=== PATIENT | female | born 1985 | race Caucasian/White ===

== ENCOUNTER 2018-02-13 18:40 | Emergency (ER) | payer BC, SELFPAY ==
[2018-02-13 18:52] VITALS: BP 117/72; PULSE 66; RESP 20; TEMP 36.8; O2SAT 100
--- NOTE | 2018-02-13 19:18 | DI.RAD.S_ITS ---
PROCEDURE: XR SOFT TISSUE NECK INDICATIONS: mid neck swelling sensation and subjective difficulty breathing TECHNIQUE: 2 views of the neck were acquired. COMPARISON: None. FINDINGS: Airway: The airway appears patent. Soft tissues: Prevertebral soft tissues are normal in thickness. The epiglottis and aryepiglottic folds appear normal. No soft tissue gas. Bones: No suspicious bony lesions. Visualized cervical spine demonstrates slight reversal of the cervical lordosis centered at C4-C5. No definite fracture or subluxation. IMPRESSION: 1. No radiographic evidence of abnormal airway narrowing. Dictated by: Luca De Leon M.D. on 02/13/2018 at 19:38 Approved by: Luca De Leon M.D. on 02/13/2018 at 19:39
--- NOTE | 2018-02-13 20:45 | ED.URI ---
HPI - URI/Sore Throat General Chief Complaint: Upper Respiratory Symptoms Stated Complaint: TROUBLE BREATHING, says its her throat Time Seen by Provider: 02/13/18 18:45 History of Present Illness HPI Narrative: HPI 32-year-old female with no significant past medical history presents for evaluation of one day of mid anterior neck tightness feeling notable on swallowing and on inspiration/expiration. Patient denies fevers, neck stiffness, headache, changes in vision or hearing, notes mild difficult swallowing. Notes that she has had mild URI to symptoms or last 3 days. Notes that she has had 2 episodes of waking up or last month where she feels like she has had difficulty breathing and choking in her mid lower throat. Patient reports that she was seen an outside facility presently 3 days ago, she had a negative rapid strep salon, but because her throat reportedly looks like it could be a bacterial pharngitis she was given amoxicillin and steroids. Patient said no significant improvement with these interventions. M/S/F/SocHx notable for: please see HPI; remainder reviewed with patient and in chart. ROS: Negative constitutional, eye, cardiovascular, pulmonary, GI, , MSK, skin, neurologic, psychiatric, endocrine unless noted in the HPI. Exam Gen: Pleasant, non-toxic appearing, resting comfortably. HEENT: Normocephalic, atraumatic. * Ears - TMs clear bilaterally, bilateral external auditory canals without erythema, inflammation, or swelling, bilateral mastoids nontender without overlying erythema, swelling, or warmth. * Eyes - Bilateral eyes without injection, swelling, or discharge, no proptosis or periorbital erythema, swelling, warmth, or tenderness. * Mouth - Anterior oropharynx with MMM, no lesions appreciated, floor of the mouth is soft and without swelling. Posterior oropharynx without swelling, exudate, erythema, lesions, or post-nasal drip, uvula midline. * Nose - Nares without crusting or discharge. * Neck - Neck supple without posterior anterior cervical chain lymphadenopathy bilaterally. Patient able to phonate a high-pitched E without difficulty. Patient able to comfortably drink a glass of water. Resp: Clear to auscultation bilaterally, normal work of breathing without accessory muscle usage. Card: Regular rate and rhythm with no murmurs, rubs or gallops. Extremities warm and well perfused. GI: Non-tender to palpation throughout all quadrants, no masses or organomegaly appreciated. : Deferred MSK: No visible deformities, strength and tone without visually appreciable deficit. Neuro: AO x 3, no facial asymmetry, vision and hearing WNL. Heme/Lymph: Deferred Skin: Normal color with no visible lesions (other than noted above). Psych: Mood and affect appropriate. XR Soft Tissue Neck: no radiographic evidence of abnormal airway narrowing. MDM Previous chart, nursing note, labs, imaging, and vitals reviewed. A: 32-year-old female with no significant past medical history presents for evaluation of one day of mid anterior neck tightness feeling notable on swallowing and on inspiration/expiration. DDx: pharngitis, esophagitis, RPA, TOBACCO BUYER, epiglottitis, globus hystericus, vocal cord dysfunction, tracheitis, hypnagogic hallucinations, hypnopompic hallucinations. Evaluation: patient remarkably well-appearing without evidence of clinically significant pharngitis or TOBACCO BUYER, given her lack of discomfort on swallowing or identifiable risk factors doubt esophagitis. Low suspicion of epiglottitis/RPA/tracheitis based on history and exam, soft tissue neck films without evidence of abnormalities - as such, doubt these processes. Remaining on the differential is mild inflammation, global hystericus, vocal cord dysfunction, and with respect to the sleep-related sensations possibility of a hypnagogic or a hypnopompic hallucination. Patient instructed to use NSAIDs and follow up with their PCP in 1-2 days for repeat evaluation and further care. Impression: sore throat (please reference below for remainder of encounter information) Related Data Allergies Allergy/AdvReac Type Severity Reaction Status Date / Time ibuprofen [IBUPROFEN] AdvReac Intermediate SWELLING Verified 02/13/18 19:17 WITH HIGH DOSES [facility] Medical History Anxiety (Acute) Social History Smoking Status: Never smoker Exam Initial Vital Signs Initial Vital Signs: Vital Signs Temperature 98.3 F 05/20/18 18:52 Pulse Rate 66 02/13/18 18:52 Respiratory Rate 20 02/13/18 18:52 Blood Pressure 117/72 02/13/18 18:52 Pulse Oximetry 100 02/13/18 18:52 Course Orders Ordered: ED Orders 02/13/18 19:18 XR soft tissue neck Stat Vital Signs - 8 hr 02/13/18 18:52 Temperature 98.3 F Pulse Rate 66 Respiratory Rate 20 Blood Pressure 117/72 Pulse Oximetry 100
[2018-02-13 21:06] VITALS: BP 115/70; PULSE 67; RESP 18; TEMP 36.9; O2SAT 99
== END 2018-02-13 21:05 | disposition home or self-care (01) ==
PROVIDERS: Emergency Provider Emergency Medicine; Family Provider Family Medicine; PCP Family Medicine
DX: J02.9 Acute pharyngitis, unspecified (principal)
CPT/HCPCS: 70360; 99282; 99283

== ENCOUNTER → 2018-03-29 13:36 | Outpatient (CLI) | payer BC, SELFPAY ==
--- NOTE | 2018-03-29 13:41 | DI.US.S_ITS ---
ULTRASOUND OF LEFT BREAST: 03/29/2018 CLINICAL: Palpable left breast lump. [facility] the left breast was performed. Chau scale images of the real-time examination were reviewed. There is a 2.1 cm x 1.4 cm x 1.9 cm oval mass with a lobulated margin in the left breast at 10 o'clock middle depth 8 cm from the nipple. This oval mass is hypoechoic. This correlates as palpated and with mammography findings. Color flow imaging demonstrates that there is an adjacent vascularity. IMPRESSION: SUSPICIOUS OF MALIGNANCY - FOLLOW-UP RECOMMENDED The 2.1 cm x 1.4 cm x 1.9 cm oval mass in the left breast is suspicious of malignancy. An ultrasound guided biopsy is recommended. Findings discussed with the patient by Dr. Aguilar of the department of radiology at the time of evaluation. This exam was interpreted at Station ID: [id number]. Electronically Signed By: Enrique Marquez M.D. cj/:03/29/2018 15:59:48 copy to: Mary Serra, fax: [phone] letter sent: Biopsy Required Ultrasound BI-RADS: 4 Suspicious abnormality
--- NOTE | 2018-03-29 13:41 | DI.MG.S_ITS ---
BILATERAL DIGITAL DIAGNOSTIC MAMMOGRAM 3D/2D: 03/29/2018 CLINICAL: Baseline exam. Family history of breast cancer. Left breast lump. No prior exams were available for comparison. The tissue of both breasts is extremely dense, which lowers the sensitivity of mammography. There is a 2 cm round equal density mass with a macrolobulated margin in the left breast at 10 o'clock middle depth. This correlates as palpated. No other significant masses, calcifications, or other findings are seen in either breast. IMPRESSION: INCOMPLETE: NEEDS ADDITIONAL IMAGING EVALUATION The 2 cm round equal density mass in the left breast is indeterminate. An ultrasound is recommended. This exam was interpreted at Station ID: [id number]. NOTE: For mammograms, a report in lay terms will be sent to the patient. Approximately 15% of breast malignancies will not be visualized mammographically. In the management of a palpable breast mass, a negative mammogram must not discourage biopsy of a clinically suspicious lesion. Electronically Signed By: Enrique oliveira/carin:03/29/2018 15:58:11 copy to: Mary Mccauley, Mary Mccauley, fax: [phone] ACR BI-RADS Category 0: Incomplete [id number]
== END ==
PROVIDERS: Family Provider Family Medicine; PCP Family Medicine; Visit Provider Obstetrics & Gynecology
DX: R92.8 Other abnormal and inconclusive findings on diagnostic imaging of breast (principal); Z80.3 Family history of malignant neoplasm of breast; N63.20 Unspecified lump in the left breast, unspecified quadrant
CPT/HCPCS: 76642; 77066; G0279

== ENCOUNTER → 2018-04-18 08:57 | Outpatient (CLI) | payer BC, SELFPAY ==
--- NOTE | 2018-04-18 | DI.MG.S_ITS ---
UNILATERAL LEFT DIGITAL DIAGNOSTIC MAMMOGRAM: 04/18/2018 CLINICAL: Left breast mass. Post clip placement. No prior exams were available for comparison. The tissue of the left breast is extremely dense, which lowers the sensitivity of mammography. There is a marker clip in the appropriate position in the left breast at 11 o'clock posterior depth. This marker clip placement is at biopsy site. IMPRESSION: POST PROCEDURE MAMMOGRAM FOR MARKER PLACEMENT There was a successful marker clip placement in the left breast posterior depth. This exam was interpreted at Station ID: [id number]. NOTE: For mammograms, a report in lay terms will be sent to the patient. Approximately 15% of breast malignancies will not be visualized mammographically. In the management of a palpable breast mass, a negative mammogram must not discourage biopsy of a clinically suspicious lesion. Electronically Signed By: Zak phillips/:04/18/2018 10:48:38 copy to: Mary Mccauley, Mary Mccauley, fax: [phone] ACR BI-RADS Category Post-procedure mammogram for marker placement
--- NOTE | 2018-04-18 01:04 | PATH_ITS ---
[id number] Control ID: [id number] [facility] PATHOLOGY ONLY [address] [facility] [address] Patient Details LIZZY JOHNSON : 1985 Age(y/m/d): Gender: F SSN: Additional Information: Clinical Info: [id number] UPIN: [id number] Specimen Details Date collected: 04/18/2018 010 Local Date received: 04/19/2018 Date entered: 04/19/2018 Date reported: 04/20/2018 1905 ET Physician Details Ordering: Shanta BLOOM Referring: ID: Tests Ordered: Pathology Report Clinician Provided ICD Code(s) & Clinical History: Material Submitted: (01) BREAST MASS 10 O'CLOCK 8 CM FROM NIPPLE Diagnosis: (02) Core Biopsies, Left Breast Mass, 10 O'Clock, 8 CM From Nipple: Fibroadenoma. Adenosis in the surrounding mammary tissue. No evidence of malignancy or cytologic atypia. BFI/04/19/2018 Pathologist Provided ICD Code(s): (02) D24.2 CPT Codes: (02) 077752 Gross Description: (01) Received one formalin-filled container labeled with the patient's name and designated LT breast mass 10 o'clock 8 cm from nipple. The specimen is received with a plastic filter, sample loose in container and consists of four 0.2-0.3 cm in diameter, light yellow-garza, rough, cylindrical-shaped portions of tissue which range in length from 1.0 cm to 2.0 cm. The specimen is entirely submitted in one cassette. Collection date: 04/18/2018. Collection time in fixative: 10:15 AM. Total fixation time: 12 hours, up to 24. ([id number])/FRR This is an amended report due to a clerical error. There is no change in the diagnosis. This case is amended in order for the report to cross the electronic results interface. The final diagnosis is unchanged. This case was originally reviewed and signed out by Dr. Clinton Smith on 04/19/2018. Electronically signed by () Bee Martines MD, Pathologist NP- [id number]
--- NOTE | 2018-04-18 08:59 | DI.US.S_ITS ---
ULTRASOUND GUIDED BIOPSY LEFT BREAST USING VACUUM DEVICE WITH MARKING DEVICE INSERTED AND POST DIGITAL MAMMOGRAPHIC AND ULTRASOUND IMAGIN04/18/2018 CLINICAL: Left breast mass. PATIENT CONSENT: Risks (minor bleeding, infection, vasovagal reaction and repeat procedure), benefits and alternatives were explained to the patient and written informed consent was obtained. Correlation is made to exams dated: 03/29/2018 ultrasound and 03/29/2018 mammogram [facility]. An ultrasound guided biopsy using real-time ultrasound was performed for the 2 cm lobulated solid mass located in the left breast at 10 o'clock middle depth. The skin was prepped in the usual manner. Local anesthetic was administered to the access site. A skin radha was made in the breast. The abnormality was approached from the lateral aspect. A 13 gauge biopsy needle was placed adjacent to the abnormality under ultrasound guidance. Once the needle was documented to be in the correct location, five specimens were obtained using the Mammotome biopsy system. The patient received additional local anesthetic during the procedure. A titanium clip was inserted into the biopsy cavity. Post procedure digital mammographic and ultrasound imaging demonstrates the clip at the targeted area and partial removal of the abnormality. The specimens were sent to the laboratory for pathological analysis. IMPRESSION: ULTRASOUND GUIDED BIOPSY BENIGN Ultrasound guided biopsy of the 2 cm solid mass in the left breast at 10 o'clock middle depth was successful. Pathology indicates benign fibroadenoma (FA). Pathology results are concordant with imaging findings. Return to annual mammogram screening schedule is recommended. This exam was interpreted at Station ID: [id number]. tee Yoo M.D., M.D./carin:04/20/2018 23:08:36 copy to: Mary Serra, fax: [phone]
== END ==
PROVIDERS: Family Provider Family Medicine; PCP Family Medicine; Visit Provider Obstetrics & Gynecology
DX: N63.22 Unspecified lump in the left breast, upper inner quadrant (principal)
CPT/HCPCS: 19083; 77065

== ENCOUNTER 2019-10-20 09:40 | Emergency (ER) | payer OTHER, SELFPAY ==
[2019-10-20 09:51] VITALS: BP 131/82; PULSE 69; RESP 14; TEMP 37.2; O2SAT 98; BMI 30.8
--- NOTE | 2019-10-20 11:10 | PC.NURSE ---
pt states she thought it might be anxiety because she's had that before but now doesn't think so. pt states its difficult to eat and sometimes difficult to swallow her own saliva and she panics when that happens.
--- NOTE | 2019-10-20 11:20 | DI.RAD.S_ITS ---
PROCEDURE: XR SOFT TISSUE NECK INDICATIONS: difficulty swallowing including saliva TECHNIQUE: 2 views of the neck were acquired. COMPARISON: Merged With [facility], CR, XR SOFT TISSUE NECK, 02/13/2018, 18:58. FINDINGS: Airway: The airway appears patent. Soft tissues: Prevertebral soft tissues are normal in thickness. The epiglottis and aryepiglottic folds appear normal. No soft tissue gas. There is reversal of the normal cervical lordosis. Bones: No suspicious bony lesions. Visualized cervical spine is normally aligned. The visualized lung apices are unremarkable. IMPRESSION: No significant soft tissue abnormality is seen. If it would be helpful for clinical management decision making, please consider a dedicated soft tissue neck protocol CT with IV contrast for further evaluation. Dictated by: Jacky Arriaga M.D. on 10/20/2019 at 11:01 Approved by: Jacky Arriaga M.D. on 10/20/2019 at 11:02
--- NOTE | 2019-10-20 11:25 | ED.URI ---
HPI - URI/Sore Throat <KALEE Zambrano - Last Filed: 10/20/19 14:01> General Chief Complaint: Upper Respiratory Symptoms Stated Complaint: Trouble Swollowing, losing weight. Time Seen by Provider: 10/20/19 11:05 Source: patient Mode of arrival: Ambulatory Limitations: no limitations History of Present Illness HPI Narrative: This is a 34-year-old female, nonsmoker, who presents to ED with difficulty swallowing. Patient states it started about 2 months ago intermittently feeling tightness in her throat the last couple of weeks this has been more constant and last 3-4 days she has difficulty swallowing her own secretions. This symptoms causing her to have panic attacks. She recently has started BuSpar for anxiety in addition to clonazepam as needed medications due to her symptoms. Patient reports had not visualized swelling in her tongue or throat. Patient denies short of breath, dyspnea, wheezing, sore throat, recent cold symptoms, increasing size in her throat. Patient denies fever, chills, nausea or vomiting. Patient has history of GERD in the past and used to take PPI for night cough and tightness in her throat. Patient reports last few days has been only drinking liquid as diet and noticed losing weight. Related Data Home Medications Medication Instructions Recorded Confirmed clonazepam 0.5 mg tablet 0.5 mg PO BID PRN 03/22/18 10/20/19 albuterol sulfate 90 mcg/actuation 2 puff INHALATION Q6H PRN 09/16/18 10/20/19 aerosol inhaler buspirone See Rx Instructions .ROUTE .COMPLEX 10/20/19 10/20/19 Previous Rx's Medication Instructions Recorded pantoprazole 20 mg PO DAILY 14 Days #14 tab 10/20/19 Allergies Allergy/AdvReac Type Severity Reaction Status Date / Time ibuprofen [IBUPROFEN] AdvReac Intermediate SWELLING Verified 10/20/19 09:51 WITH HIGH DOSES Review of Systems <KALEE Zambrano - Last Filed: 10/20/19 14:01> Review of Systems Narrative: General: Denies fever, chills, fatigue, malaise, sweats. HEENT: Denies sinus pain, ear pain, sore throat, difficulty swallowing (+), dizziness. Respiratory: Denies dyspnea, cough, wheezing, hemoptysis, sputum. Cardiovascular: Denies chest pain, palpitations, orthopnea, edema. Gastrointestinal: Denies nausea, vomiting, abdominal pain, diarrhea, constipation, melena. : Denies dysuria, frequency, incontinence, hematuria, urinary retention. Musculoskeletal: Denies weakness, joint pain or bony pain. Skin: Denies rash, skin lesions, or other. Neurologic: Denies weakness, headache, numbness, change in speech, confusion, seizures, incoordination. Psychiatric: Reports anxiety and her symptoms causing panic attacks. 12-point review of systems is negative except for those stated above. Patient History <KALEE Zambrano - Last Filed: 10/20/19 14:01> Medical History Anxiety (Acute) Surgical History History of bilateral tubal ligation (Acute) Social History Smoking Status: Never smoker Smoking Status: Never smoker alcohol intake frequency: holidays/special occasions only Substance Use Type: does not use Exam <KALEE Zambrano - Last Filed: 10/20/19 14:01> Narrative Exam Narrative: GEN: Alert, oriented x 3, well appearing and nourished, and in no acute distress. Head: Normal cephalic, atraumatic. No scalp or temporal tenderness, palpable mass or rash. EYES: Pupils are equal, round, and reactive to light and accommodation. Extraocular muscles are intact bilaterally. There is no subconjunctival hemorrhage, exudate and sclera non-icteric. ENT: Bilateral auditory canals and tympanic membranes clear. Hearing grossly intact. Nose without bleeding, purulent discharge or deviation. Facial sinuses nontender to palpate. Mucous membrane moist, no mucosal lesion. Throat without erythema, tonsillar hypertrophy or exudate. Uvula in midline, airway patent. Pt is able to swallow her own secretion w/o difficulty. Neck: Trachea in midline. No JVD, non-tender without lymphadenopathy. No masses or thyroid megaly. Supple, non-tender and no meningeal signs. CARDIAC: Normal regular rate and rhythm without murmurs, gallops, or rubs. No chest wall tenderness. No peripheral edema, cyanosis or pallor. Capillary refill is less than 2 seconds. RESPIRATORY: Lungs are clear to auscultate bilaterally. No cough, wheezes, rales, or rhonchi. No stridor, respiratory distress, increase work of breathing, or accessary muscle used. ABD: Abdomen soft, nontender and non-distended. No guarding or rebound tenderness to palpate. Bowel sounds are normal in all 4 quadrants. There is no palpable masses or organomegaly. EXT: Full painless ROM of all extremities with no loss of sensation, strength, effusion or edema. SKIN: Warm, dry, normal color for patient. No erythema, lesions or rash over visible areas. BACK: Nontender without deformity or crepitance. No flank tenderness. NEUROLOGICAL: Alert and oriented to place, time and person. Sensation and motor function intact bilaterally. No facial droops, dysphasia. PSYCHIATRIC: Good judgement and reason, without hallucinations, abnormal affect or abnormal behaviors during the examination. Patient is not suicidal. Initial Vital Signs Initial Vital Signs: Vital Signs Temperature 98.9 F 10/20/19 09:51 Pulse Rate 69 10/20/19 09:51 Respiratory Rate 14 10/20/19 09:51 Blood Pressure 131/82 10/20/19 09:51 Pulse Oximetry 98 10/20/19 09:51 <Eran Cardona MD - Last Filed: 10/23/19 20:54> Initial Vital Signs Initial Vital Signs: Vital Signs Temperature 98.9 F 10/20/19 09:51 Pulse Rate 69 10/20/19 09:51 Respiratory Rate 14 10/20/19 09:51 Blood Pressure 131/82 10/20/19 09:51 Pulse Oximetry 98 10/20/19 09:51 Course <KALEE Zambrano - Last Filed: 10/20/19 14:01> Orders Ordered: Discontinued Medications Pantoprazole Sodium (Protonix) 20 mg PO NOW ONE Stop: 10/20/19 12:30 Last Admin: 10/20/19 13:20 Dose: 20 mg Documented by: YUNIER Vital Signs Vital signs: Vital Signs - 8 hr 10/20/19 09:51 10/20/19 13:30 Temperature 98.9 F Pulse Rate 69 61 Respiratory Rate 14 18 Blood Pressure 131/82 120/62 Pulse Oximetry 98 98 <Eran Cardona MD - Last Filed: 10/23/19 20:54> Orders Ordered: Discontinued Medications Pantoprazole Sodium (Protonix) 20 mg PO NOW ONE Stop: 10/20/19 12:30 Last Admin: 10/20/19 13:20 Dose: 20 mg Documented by: YUNIER Vital Signs Vital signs: Vital Signs - 8 hr 10/20/19 09:51 10/20/19 13:30 Temperature 98.9 F Pulse Rate 69 61 Respiratory Rate 14 18 Blood Pressure 131/82 120/62 Pulse Oximetry 98 98 MDM - URI/Sore Throat <KALEE Zambrano - Last Filed: 10/20/19 14:01> Differential Diagnosis Differential diagnosis: Likely other (Esophageal stricture, GERD, esophageal outflow obstruction, esophageal motility dysfunction, anxiety) Medical Records Attestation: I reviewed the patient's medical records. Lab Data Attestation: I reviewed the patient's lab results. Result diagrams: 10/20/19 11:49 10/20/19 11:49 Labs: Lab Results 10/20/19 10/20/19 Range/Units 11:49 11:49 WBC 6.5 (4.5-11.0) X10^3/uL RBC 4.76 (4.0-5.2) X10^6/uL Hgb 14.3 (12.0-16.0) g/dL Hct 41.2 (36-46) % MCV 86.5 (80-100) fL MCH 30.0 (26-34) PG MCHC 34.7 (30-36) % RDW 12.5 (11.6-14.8) % Plt Count 257 (150-400) X10^3/uL Neut % (Auto) 73.9 (50-75) % Lymph % (Auto) 18.1 L (25-40) % [place] % (Auto) 6.6 (3-14) % Eos % (Auto) 0.6 L (2-4) % Baso % (Auto) 0.8 (0-2) % Neut # (Auto) 4800 (0857-7463) /uL Lymph # (Auto) 1200 (0133-4668) /uL [place] # (Auto) 400 (0-900) /uL Eos # (Auto) 0 (0-450) /uL Baso # (Auto) 100 (0-100) /uL Sodium 140 (137-145) mmol/L Potassium 4.1 (3.4-5.1) mmol/L Chloride 100 (98-107) mmol/L Carbon Dioxide 29 (22-32) mmol/L BUN 16 (7-17) mg/dL Creatinine 0.70 (0.52-1.04) mg/dL Estimated GFR > 60.0 (>60) mL/min BUN/Creatinine Ratio 22.9 H (6-22) Glucose 87 (70-100) mg/dL Calcium 9.7 (8.4-10.2) mg/dL Imaging Data XR-Soft tissue neck: Radiologist's Impression: [address] [address] XRay Report Signed Patient: Naye Marroquin EMR#: [id number] : 1985Acct:[id number] Age/Sex: 34 / FDate of Service: 10/20/19 Loc: ED Accession Number: [id number] Procedure: XR soft tissue neck Ordering Provider: Saran Farooq PROCEDURE: XR SOFT TISSUE NECK INDICATIONS: difficulty swallowing including saliva TECHNIQUE: 2 views of the neck were acquired. [facility] 18[facility]58. FINDINGS: Airway: The airway appears patent. Soft tissues: Prevertebral soft tissues are normal in thickness. The epiglottis and aryepiglottic folds appear normal. No soft tissue gas. There is reversal of the normal cervical lordosis. Bones: No suspicious bony lesions. Visualized cervical spine is normally aligned. The visualized lung apices are unremarkable. IMPRESSION: No significant soft tissue abnormality is seen. If it would be helpful for clinical management decision making, please consider a dedicated soft tissue neck protocol CT with IV contrast for further evaluation. Dictated by: Jacky Arriaga M.D. on 10/20/2019 at 11:01 Approved by: Jacky Arriaga M.D. on 10/20/2019 at 11:02 [facility] Narrative Medical decision making narrative: The patient presents to ED with subjective dysphagia for last couple of months which has been increasing in severity and frequency for last several weeks and worsening feeling for last 3-4 days with swallowing her own secretion which is triggering panic attacks. No recent cold symptoms or sore throat. Patient recently started on BuSpar for her symptoms. She has history of GERD with symptoms during nights with frequent cough but she is no longer taking PPI at this time. Patient states his she has been losing weight due to not taking solid foods but is able to tolerate fluids at this time. Electrolytes and CBC were unremarkable. Soft tissue neck x-ray does not show acute findings such as obstruction, soft tissue gas, bony lesions or soft tissue abnormality. Patient declined CT test at this time. Patient was able to swallow pill and water without difficulty in ED. patient advised to keep liquid diet until dysphagia improves. Patient advised to follow-up with PCP for further investigating tests such as EGD, CT, barium swallow test, or esophageal manometry. Patient discharged to home with 2 week dose of PPI and return precautions were discussed and patient verbalized understanding and agrees with the treatment plan. <Eran Cardona MD - Last Filed: 10/23/19 20:54> Lab Data Labs: Lab Results 10/20/19 10/20/19 Range/Units 11:49 11:49 WBC 6.5 (4.5-11.0) X10^3/uL RBC 4.76 (4.0-5.2) X10^6/uL Hgb 14.3 (12.0-16.0) g/dL Hct 41.2 (36-46) % MCV 86.5 (80-100) fL MCH 30.0 (26-34) PG MCHC 34.7 (30-36) % RDW 12.5 (11.6-14.8) % Plt Count 257 (150-400) X10^3/uL Neut % (Auto) 73.9 (50-75) % Lymph % (Auto) 18.1 L (25-40) % [place] % (Auto) 6.6 (3-14) % Eos % (Auto) 0.6 L (2-4) % Baso % (Auto) 0.8 (0-2) % Neut # (Auto) 4800 (2301-1194) /uL Lymph # (Auto) 1200 (8135-9424) /uL [place] # (Auto) 400 (0-900) /uL Eos # (Auto) 0 (0-450) /uL Baso # (Auto) 100 (0-100) /uL Sodium 140 (137-145) mmol/L Potassium 4.1 (3.4-5.1) mmol/L Chloride 100 (98-107) mmol/L Carbon Dioxide 29 (22-32) mmol/L BUN 16 (7-17) mg/dL Creatinine 0.70 (0.52-1.04) mg/dL Estimated GFR > 60.0 (>60) mL/min BUN/Creatinine Ratio 22.9 H (6-22) Glucose 87 (70-100) mg/dL Calcium 9.7 (8.4-10.2) mg/dL Discharge Plan Departure Patient Disposition: Home Clinical Impression: Dysphagia Qualifiers: Dysphagia type: unspecified Qualified Code(s): R13.10 - Dysphagia, unspecified GERD (gastroesophageal reflux disease) Qualifiers: Esophagitis presence: esophagitis presence not specified Qualified Code(s): K21.9 - Gastro-esophageal reflux disease without esophagitis Discharge Date/Time: 10/20/19 13:30 Instructions: DI for Gastroesophageal Reflux Disease (GERD), DI for Esophageal Dysphagia Activity Restrictions/Additional Instructions: You have been diagnosed with [dysphagia for solid foods and possible GERD. Today's lab test were unremarkable. Electrolytes was normal. X-ray test of soft neck tissue shows normal thickness, no suspicious bony lesions, soft tissue swelling in her throat.]. What to do: *Take your medications as directed. Please take Protonix once a day for next couple of weeks. This medication has been transmitted to [facility]. *Follow up with your primary care provider in 2-3 days, call for an appointment. Let them know you were seen in the ED and that we asked you to be seen in follow up. You may need swallow test, EGD, esophageal home manometry or other imaging tests for investigating her symptoms such as stricture or mobility/peristalsis. *Return to ED if you have any new, worsening, or concerning symptoms, such as [chest pain, breathing difficulty, unable to tolerate clear liquids, or any other concerns]. Prescriptions: New pantoprazole 20 mg tablet,delayed release (DR/EC) 20 mg PO DAILY 14 Days Qty: 14 RF: 0 No Action albuterol sulfate [Ventolin HFA] 90 mcg/actuation HFA aerosol inhaler 2 puff INHALATION Q6H PRN (Reason: Shortness Of Breath) RF: 0 clonazepam 0.5 mg tablet 0.5 mg PO BID PRN (Reason: Anxiety) RF: 0 buspirone 10 mg tablet See Rx Instructions .ROUTE .COMPLEX RF: 0 Referrals: William Prieto MD [Primary Care Provider] -
[2019-10-20 11:56] LABS: Add Manual Diff / Slide Review NO; Basophils Absolute Auto 100 /uL (0-100); Basophils Percent Auto 0.8 % (0-2); Eosinophils Absolute Auto 0 /uL (0-450); Eosinophils Percent Auto 0.6 % (2-4); Hematocrit 41.2 % (36-46); Hemoglobin 14.3 g/dL (12.0-16.0); Lymphocytes Absolute Auto 1200 /uL (1100-4500); Lymphocytes Percent Auto 18.1 % (25-40); Mean Corpuscular HGB Conc 34.7 % (30-36); Mean Corpuscular Volume 86.5 fL (80-100); Monocytes Absolute Auto 400 /uL (0-900); Monocytes Percent Auto 6.6 % (3-14); Neutrophils Absolute Auto 4800 /uL (1500-7000); Neutrophils Percent Auto 73.9 % (50-75); Platelet Count 257 X10^3/uL (150-400); Red Blood Cell Count 4.76 X10^6/uL (4.0-5.2); Red Cell Distribution Width 12.5 % (11.6-14.8); White Blood Cell Count 6.5 X10^3/uL (4.5-11.0)
[2019-10-20 12:09] LABS: BUN Creatinine Ratio 22.9 (6-22); Blood Urea Nitrogen 16 mg/dL (7-17); Calcium 9.7 mg/dL (8.4-10.2); Carbon Dioxide 29 mmol/L (22-32); Chloride 100 mmol/L (98-107); Estimated Glomerular Filt Rate > 60.0 mL/min (>60); Glucose 87 mg/dL (70-100); HEMOLYSIS < 15 (0-50); Potassium 4.1 mmol/L (3.4-5.1); Sodium 140 mmol/L (137-145)
[2019-10-20] MEDS: PANTOPRAZOLE 20 MG TABLET PO (13:20)
[2019-10-20 13:30] VITALS: BP 120/62; PULSE 61; RESP 18; O2SAT 98
== END 2019-10-20 13:30 | disposition home or self-care (01) ==
PROVIDERS: Emergency Provider Nurse Practitioner Family; Family Provider Family Medicine; PCP Family Medicine
DX: R13.10 Dysphagia, unspecified (principal); K21.9 Gastro-esophageal reflux disease without esophagitis
CPT/HCPCS: 36415; 70360; 80048; 85025; 99283; 99284

== ENCOUNTER → 2019-12-11 09:56 | Outpatient (CLI) | payer OTHER, SELFPAY ==
--- NOTE | 2019-12-11 | DI.RAD.S_ITS ---
PROCEDURE: FL BARIUM SWALLOW W SPEECH INDICATIONS: Dysphagia, unspecified TECHNIQUE: Examination was conducted in conjunction with speech pathology per standard protocol. In the lateral projection, filming was performed of the patient swallowing. AP projection filming may also be performed with patient swallowing. COMPARISON: None. FINDINGS: Function: The oral preparatory phase demonstrates early spillage of contrast material. The subsequent oral propulsive phase, pharyngeal phase, and esophageal phase of swallowing appear delayed with all proffered substances. No laryngotracheal penetration or aspiration. No pathologic vallecular pooling. Morphology: No cricopharyngeal bar is identified. No cervical esophageal webs. No Zenker's diverticulum. No strictures. IMPRESSION: No tracheal aspiration identified. Intermittent early spillage of contrast material, and subsequent phases of swallowing appear delayed. Dictated by: Edgardo Aguilar M.D. on 12/11/2019 at 11:46 Approved by: Edgardo Aguilar M.D. on 12/11/2019 at 11:50
--- NOTE | 2019-12-12 12:28 | ST.SWALLOW ---
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 Dahiana Bradley Reason for Referral Difficulty swallowing Setting Setting Outpatient Care Patient Information Identification Type Name,ID Card Patient History The pt is a 34-yr-old female who reported sudden difficulty swallowing her saliva while at work on 10/19/19. Since then, she has been on a full liquid diet d/t difficulty swallowing solids and reported occasional difficulty swallowing thick viscosities such as a milkshake. She stated, It's like my tongue has forgotten how to swallow and reported that she sometimes has to regurgitate because it won't pass through. She reported sticking sensation in her throat, sometimes feeling it in the upper and other times lower throat areas. She takes oral medicines but only small tablets with water, with which she sometimes struggles to swallow. In mid-October, she underwent upper endoscopy at [facility], with normal findings with exception of mild acid reflux for which she now takes medication. She has a manometry appt tomorrow in [place]. She reported no other significant medical conditions and denied neurological symptoms in limbs or other body parts, including her tongue for speech. She reported having had a different than normal headache in recent past but could not recall the date, and stated that it had passed. She reported getting dizzy on occasion and feeling some brain fog, but attributed both to reduced nutrition secondary to liquid diet. She also reported high levels of stress at this time, including the of a nephew. Subjective Observations The pt arrived on time unaccompanied. She provided case history and reported being scared of having to swallow the barium contrast and anything thicker than water. The procedure and trial items were explained to her. She became tearful but wished to proceed with the study. She was intermittently tearful throughout the study. Patient Positioning Position View Lat-A/P Imaging Lateral View Textures Administered Trials Presented Thin Liquid via Spoon,Thin Liquid via Cup,New Point Liquid via Spoon,New Point Liquid via Cup,Honey Liquid via Spoon, Regular Textures Oral Phase Source: MBSIMP (TM) (C) Bolus Specific Scoring Grid Lip Closure No Impairment (WNL) Tongue Control During Bolus Hold Moderate Impairment Bolus Prep/Mastication Moderate Impairment Bolus Transport/Lingual Motion Mild Impairment A/P Lingual Propulsion Delay Yes: Lingual rocking w/ spillage to floor of mouth Oral Residue WFL Residue Clearing No Impairment (WNL) Nasal Regurgitation No Additional Oral Phase Observations Oral Peripheral Exam: Symmetrical features. All structures were WNL of strength, coordination and ROM. No lingual fasciculation or other abnormal movement was observed. Pt appeared to have adequate volitional control of all structures. The pt has full upper/lower dentition in excellent condition. Soft palate elevated upon phonation. Oral Phase: Difficulty with bolus prep and a/p propulsion was observed consistently with all boluses, characterized by lateral escape from tongue blade to floor of mouth and lingual rocking in a/p propulsion. Gag reflex appeared to be hyperactive and may have contributed to difficulty. Once a/p propulsion was initiated, it was hussein and WNL. Posterior escape of more than half of the initial bolus (tsp of thin liquid) was observed and extended to pyriform sinuses prior to onset of swallow trigger. Early escape to vallecula was observed in most thin and NTL trials; reduced with greater bolus bulk. Mild oral residue was observed on tongue blade and cleared with subsequent swallows. The pt swallowed tsp of HTL piecemeal in two swallows. Pharyngeal Phase Source: MBSIMP (TM) (C) Bolus Specific Scoring Grid Delayed Initiation of Pharyngeal Swallow Yes: Consistently to vallecula w/ liquids Soft Palate Elevation No Impairment (WNL) Tongue Base Strength/Range of Motion No Impairment (WNL) Residue Along the Tongue Base Yes: Occasional trace Clearance of Residue Along Tongue Base No Impairment (WNL) Laryngeal Elevation No Impairment (WNL) Anterior Hyoid Movement No Impairment (WNL) Epiglottic Range of Motion No Impairment (WNL) Vallecular Residue Yes: Occasional trace residue Clearance of Vallecular Residue No Impairment (WNL) Laryngeal Vestibular Closure No Impairment (WNL) Pharyngeal Stripping Wave No Impairment (WNL) Pharyngeal Contraction No Impairment (WNL) Posterior Pharyngeal Wall Residue No Upper Esophageal Sphincter Opening No Impairment (WNL) Residue in the Pyriform Sinuses No Pharyngoesophageal Backflow Observed No Additional Pharyngeal Phase Observations Mildly delayed swallow trigger present with liquids. Trigger improved with increased bolus bulk. Trace residue was present occasionally at base of tongue and vallecula, which cleared well with subsequent swallows. No penetration or aspiration was observed with all trials. A/P View Textures Administered Trials Presented New [place] Liquid via Cup,Pudding Thick Liquid via Spoon,Barium Tablet A/P View Observations Pharyngeal Contraction No Impairment (WNL) Esophageal Function Slowed Clearing Esophageal Observations Esophageal Function Slowed esophageal clearance observed with pudding and 13mm barium tablet. Tablet passed to stomach with subsequent swallows of water. The pt c/o sticking sensation at base of throat while the tablet was held in esophagus, indicating referred sensory input. Once it passed to the stomach, the pt reported the sticking sensation had cleared. Clinical Impressions Dysphagia Type Mild Oral Dysphagia Findings The pt presents with mild oral dysphagia characterized by disorganized bolus prep and a/p propulsion, possibly influenced by hyperactive gag reflex. No obvious evidence of neurologic or physiologic impairments was observed to explain pt's difficulty getting [her] tongue to do its job. The pt's speech was clear, indicating normal control of articulators, and she demonstrated good ability to move and volitionally control her tongue, lips, and cheeks in oral motor evaluation prior to bolus trials. Slowed esophageal clearance with associated referred sensory input appears to contribute to the pt's sensation that food is sticking in her throat, as no abnormal pharyngeal residue or stasis was observed throughout the study. Referred sensation may also contribute to a possible psychological component, creating a fear of choking when, in fact, the pharynx is clear and airway is well protected. Such a fear may inhibit the pt from initiating swallow, resulting in the observed lingual rocking in the oral phase. These findings and considerations were shared with the pt at the conclusion of the study. A short course of outpatient dysphagia therapy was recommended for further education, including review of the MBS video with the pt, as well as lingual exercises to demonstrate and/ or improve lingual control and to increase the pt's comfort and confidence with oral intake. It was also recommended that the pt resume a solid diet gradually, beginning with small bites of pureed and dysphagia mechanical textures and increasing to regular texture as the pt felt comfortable. She was in agreement with all recommendations. Rehabilitation Potential Excellent Patient Appropriate for Therapy Yes Recommendations Diet Liquids Order Thin Diet Order Regular Medication Recommendation As Tolerated,One at a Time Comments Gradually increase diet from soft/moist to regular as comfortable Aspiration Precautions Recommended Precautions Upright at 90 Degrees,Small Bites/Sips Treatment Plan Therapy Recommendations Outpatient Speech Therapy, Lingual Exercises Additional Therapy Recommendations Education and review of MBS video Additional Recommended Referrals The pt is already referred to GI Short Term Goals 1. The pt will verbalize understanding of education RE swallow function/safety, including review of MBS video. 2. The pt will perform lingual exercises to increase her confidence in and improve lingual control necessary for safe swallow. Fdc Goals 1. The pt will safely resume oral intake of solids, up to and including regular textures, without s/sx of oral dysphagia and aspiration. Placement Recommendation After Discharge Home
== END ==
PROVIDERS: Family Provider Family Medicine; PCP Family Medicine; Referring Provider Family Medicine; Visit Provider Student in an Organized Health Care Education/Training Program
DX: R13.10 Dysphagia, unspecified (principal)
CPT/HCPCS: 74230

== ENCOUNTER 2020-02-23 17:40 | Emergency (ER) | payer OTHER, SELFPAY ==
[2020-02-23 17:48] VITALS: BP 137/77; PULSE 72; RESP 20; TEMP 36.8; O2SAT 100; BMI 28.9
--- NOTE | 2020-02-23 17:54 | DI.RAD.S_ITS ---
PROCEDURE: XR CHEST 1V INDICATIONS: chest pain TECHNIQUE: One view of the chest was acquired. COMPARISON: None. FINDINGS: Surgical changes and devices: None. Lungs and pleura: Lungs are clear. No pleural effusions or pneumothorax. Mediastinum: Mediastinal contours appear normal. Heart size is normal. Bones and chest wall: No suspicious bony lesions. Overlying soft tissues appear unremarkable. IMPRESSION: Normal chest. Dictated by: Elli Soto M.D. on 02/23/2020 at 19:10 Approved by: Elli Soto M.D. on 02/23/2020 at 19:11
--- NOTE | 2020-02-23 18:05 | ED_ITS ---
HPI - Arrhythmia/Palpitations General Chief Complaint: Arrhythmia/Palpitations Stated Complaint: states fluttering in her heart Time Seen by Provider: 02/23/20 17:56 Source: patient Mode of arrival: Ambulatory Limitations: no limitations History of Present Illness HPI narrative: The patient has felt palpitations for about a day. She admits to anxiety. She is thinking she has had a panic attack. She has no history of cardiac disease. She has no chronic medical problems, including cardiac disease, respiratory disease, or thyroid problems. She denies recent illness. She has had no cough, difficulty breathing, or fever chills. She has been around no one with illness. She has previously been treated with meds for anxiety, she is off meds now. She was on BuSpar with no positive affects. With the palpitations she denies chest pain, dizziness, near syncope episodes, or proven history of arrhythmia or cardiac disease. She is having anxiety issues on a daily basis. She does not have insomnia. She has trouble falling asleep but once asleep she is okay. She has no thoughts of self-harm or harm to o thers. She has no periods of crying or concerns for depression. She feels she does have anxiety. Related Data Home Medications Medication Instructions Recorded Confirmed clonazepam 0.5 mg tablet 0.5 mg PO BID PRN 03/22/18 10/20/19 albuterol sulfate 90 mcg/actuation 2 puff INHALATION Q6H PRN 09/16/18 10/20/19 aerosol inhaler buspirone See Rx Instructions .ROUTE .COMPLEX 10/20/19 10/20/19 Allergies Allergy/AdvReac Type Severity Reaction Status Date / Time ibuprofen [IBUPROFEN] AdvReac Intermediate SWELLING Verified 10/20/19 09:51 WITH HIGH DOSES Review of Systems Review of Systems ROS Unobtainable: All systems reviewed & are unremarkable except as noted in HPI and below Constitutional Constitutional: Reports as per HPI, Denies chills, Denies fever(s), Denies headache(s), Denies lethargy and Denies weakness Comments: No recent illness Eyes Eyes: Denies change in vision ENT Ears, Nose, Mouth, and Throat: Denies change in voice, Denies vertigo, Denies dizziness, Denies headache(s), Denies neck pain and Denies sore throat Cardiovascular Cardiovascular: Denies chest pain, Denies syncope, Denies lightheadedness, Denies palpitations, Denies dyspnea and Denies orthopnea Respiratory Respiratory: Denies cough, Denies dyspnea and Denies wheezing Gastrointestinal Gastrointestinal: Denies abdominal pain, Denies nausea and Denies vomiting Genitourinary Comments: She has previously had a tubal ligation, she denies . Musculoskeletal Musculoskeletal: Denies back pain and Denies neck pain Integumentary/Breasts Skin/Breast: Denies pruritus, Denies erythema, Denies rash and Denies wounds Neurologic Neurologic: Denies confusion, Denies vertigo, Denies dizziness, Denies syncope, Denies headache(s) and Denies weakness Psychiatric Psychiatric: Denies confusion Endocrine Endocrine: Denies palpitations Allergic/Immunologic Allergic/Immunologic: Denies wheezing Patient History Medical History Anxiety (Acute) Surgical History History of bilateral tubal ligation (Acute) Social History Smoking Status: Never smoker Smoking Status: Never smoker alcohol intake frequency: holidays/special occasions only Substance Use Type: does not use Exam Initial Vital Signs Initial Vital Signs: Vital Signs Temperature 98.2 F 02/23/20 17:48 Pulse Rate 72 02/23/20 17:48 Respiratory Rate 20 02/23/20 17:48 Blood Pressure 137/77 02/23/20 17:48 Pulse Oximetry 100 02/23/20 17:48 Const General: cooperative and well developed Nutritional Appearance: well nourished [facility] Head: normocephalic and atraumatic Mouth: oral mucosae normal and moist mucous membranes Throat: posterior oropharynx normal Eyes General: appearance normal, both eyes and all related structures Eyelids: eyelids normal Conjunctivae: conjunctivae normal Sclera: sclerae normal Pupils: PERRL EOM: EOM intact bilaterally Neck Neck: No lymphadenopathy and No JVD Thyroid: thyroid normal Chest Chest: normal inspection of the chest Resp Effort & Inspection: normal respiratory effort and able to speak in complete sentences Auscultation: clear to auscultation bilaterally, no rales, no rhonchi and no wheezes Cardio Rate: regular rate Rhythm: regular rhythm Heart Sounds: S1 normal, S2 normal, no click, no gallops, no murmurs and no rubs Pulses: normal peripheral pulses GI Inspection: non-distended Palpation: soft, no hepatosplenomegaly and No tender Auscultation: normal bowel sounds Back/Spine/Pelvis Back: No CVA tenderness Cervical Spine: cervical ROM normal and No pain with cervical ROM Thoracic/Lumbar Spine: thoracic and lumbar spine normal to inspection Skin General: no rashes or lesions noted and No petechiae Neuro General: alert, oriented x3, gait normal and no focal motor deficits Speech: speech normal Extrem General: full ROM, no clubbing, cyanosis or edema, no pedal edema and no calf tenderness Psych Appearance: well kempt Mental Status: mental status grossly normal Attitude: cooperative Thought Content: normal and suicidality Judgment: judgment good Course Course Course Narrative: The patient has a normal EKG, and a normal chest x-ray. She has stable vitals, monitoring reveals continues normal rhythm. We discuss palpitations, we discussed anxiety. She is healthy other than these moments. She is reassured by the normal EKG and normal chest x-ray. We discussed lab evaluation, she declined. After discussing palpitations and anxiety she has decided to contact her doctor tomorrow to discuss anxiety management. Orders Ordered: ED Orders 02/23/20 17:45 Complete Blood Count AUTO DIFF Stat Comprehensive Metabolic Panel Stat Lipase Stat Partial Thromboplastin Time Stat Prothrombin Time INR Stat Troponin & CK Cardiac Panel Stat 02/23/20 17:54 XR chest 1V Stat EKG-12 Lead Stat Vital Signs Vital signs: Vital Signs - 8 hr 02/23/20 17:48 Temperature 98.2 F Pulse Rate 72 Respiratory Rate 20 Blood Pressure 137/77 Pulse Oximetry 100 MDM - Arrhythmia/Palpitations Lab Data Result diagrams: 02/23/20 17:45 02/23/20 17:45 Labs: Lab Results 02/23/20 02/23/20 02/23/20 Range/Units 17:45 17:45 17:45 WBC 8.0 (4.5-11.0) X10^3/uL RBC 4.67 (4.0-5.2) X10^6/uL Hgb 14.2 (12.0-16.0) g/dL Hct 41.1 (36-46) % MCV 88.0 (80-100) fL MCH 30.4 (26-34) PG MCHC 34.5 (30-36) % RDW 13.1 (11.6-14.8) % Plt Count 279 (150-400) X10^3/uL Neut % (Auto) 67.2 (50-75) % Lymph % (Auto) 22.2 L (25-40) % [place] % (Auto) 8.3 (3-14) % Eos % (Auto) 1.6 L (2-4) % Baso % (Auto) 0.7 (0-2) % Neut # (Auto) 5400 (9564-8233) /uL Lymph # (Auto) 1800 (1004-8419) /uL [place] # (Auto) 700 (0-900) /uL Eos # (Auto) 100 (0-450) /uL Baso # (Auto) 100 (0-100) /uL PT 10.9 (10.1-12.7) SECONDS INR 1.0 (0.9-1.3) APTT 31 (26.4-36.2) SECONDS Sodium 137 (137-145) mmol/L Potassium 3.8 (3.4-5.1) mmol/L Chloride 101 (98-107) mmol/L Carbon Dioxide 27 (22-32) mmol/L BUN 18 H (7-17) mg/dL Creatinine 0.67 (0.52-1.04) mg/dL Estimated GFR > 60.0 (>60) mL/min BUN/Creatinine Ratio 26.9 H (6-22) Glucose 97 (70-100) mg/dL Calcium 9.8 (8.4-10.2) mg/dL Total Bilirubin 0.7 (0.2-1.3) mg/dL AST 32 (14-36) IU/L ALT 16 (<35) IU/L Alkaline Phosphatase 54 (38-126) U/L Total Creatine Kinase 60 (30-135) U/L CK-MB (CK-2) TNP CK-MB (CK-2) Rel Index TNP Troponin I < 0.012 (0.01-0.034) ng/mL Total Protein 8.1 (6.3-8.2) g/dL Albumin 4.9 (3.5-5.0) g/dL Globulin 3.2 (1.7-4.1) g/dL Albumin/Globulin Ratio 1.5 (1.0-2.8) Lipase 139 (23-300) U/L Imaging Data Chest x-ray: Radiologist's Impresson: 1 Diagnostics DATE TYPE STATUS AUTHOR Hx 02/23/20 17:54 Elli Soto 12/11/19 00:00 Edgardo Aguilar 10/20/19 11:20 Jacky Arriaga 04/18/18 08:59 Zak Cardozo 04/18/18 00:00 Zak Cardozo 03/29/18 13:41 Luciano Marquez 03/29/18 13:41 Jimmy,Luciano 02/13/18 19:18 De LeonLuca Naye Marroquin 34, 1985 [facility] ER, [facility] ED 152.4cm 67.132kg BMI: 28.9kg/m? Arrhythmia/Palpitations Search Chart No Data to Display SWELLING WITH HIGH DOSES ONSET 02/23/20 18:37 Naye Marroquin 34 F 1985 [place] [address] XRay Report Signed Patient: JeanLaliRodriguezNaye EMR#: [id number] : 1985Acct:[id number] Age/Sex: 34 / FDate of Service: 02/23/20 Loc: ED Accession Number: [id number] Procedure: XR chest 1V Ordering Provider: Eran Cardona MD PROCEDURE: XR CHEST 1V INDICATIONS: chest pain TECHNIQUE: One view of the chest was acquired. COMPARISON: None. FINDINGS: Surgical changes and devices: None. Lungs and pleura: Lungs are clear. No pleural effusions or pneumothorax. Mediastinum: Mediastinal contours appear normal. Heart size is normal. Bones and chest wall: No suspicious bony lesions. Overlying soft tissues appear unremarkable. IMPRESSION: Normal chest. Dictated by: Elli Soto M.D. on 02/23/2020 at 19:10 Approved by: Elli Soto M.D. on 02/23/2020 at 19:11 ECG Data Attestation: I personally reviewed and interpreted this ECG as follows: (Normal sinus rhythm rate 72 beats per minute. Normal intervals. No ectopy. No acute ST T wave changes.) Discharge Plan Departure Patient Disposition: Home Clinical Impression: Anxiety Discharge Date/Time: 02/23/20 18:43 Instructions: DI for Anxiety -- Adult Activity Restrictions/Additional Instructions: Call your doctor tomorrow to discuss anxiety management. Return to the ER if symptoms escalate. Prescriptions: No Action albuterol sulfate [Ventolin HFA] 90 mcg/actuation HFA aerosol inhaler 2 puff INHALATION Q6H PRN (Reason: Shortness Of Breath) RF: 0 clonazepam 0.5 mg tablet 0.5 mg PO BID PRN (Reason: Anxiety) RF: 0 buspirone 10 mg tablet See Rx Instructions .ROUTE .COMPLEX RF: 0 Referrals: Dahiana Bradley DO [Primary Care Provider] -
[2020-02-23 18:10] LABS: Add Manual Diff / Slide Review NO; Basophils Absolute Auto 100 /uL (0-100); Basophils Percent Auto 0.7 % (0-2); Eosinophils Absolute Auto 100 /uL (0-450); Eosinophils Percent Auto 1.6 % (2-4); Hematocrit 41.1 % (36-46); Hemoglobin 14.2 g/dL (12.0-16.0); Lymphocytes Absolute Auto 1800 /uL (1100-4500); Lymphocytes Percent Auto 22.2 % (25-40); Mean Corpuscular HGB Conc 34.5 % (30-36); Mean Corpuscular Hemoglobin 30.4 PG (26-34); Monocytes Absolute Auto 700 /uL (0-900); Monocytes Percent Auto 8.3 % (3-14); Neutrophils Absolute Auto 5400 /uL (1500-7000); Neutrophils Percent Auto 67.2 % (50-75); Platelet Count 279 X10^3/uL (150-400); Red Blood Cell Count 4.67 X10^6/uL (4.0-5.2); Red Cell Distribution Width 13.1 % (11.6-14.8)
[2020-02-23 18:13] LABS: Prothrombin Time 10.9 SECONDS (10.1-12.7)
[2020-02-23 18:15] LABS: PTT Partial Thromboplastin Tim 31 SECONDS (26.4-36.2)
[2020-02-23 18:18] LABS: Alanine Aminotransferase 16 IU/L (<35); Albumin 4.9 g/dL (3.5-5.0); Albumin Globulin Ratio 1.5 (1.0-2.8); Alkaline Phosphatase 54 U/L (38-126); Aspartate Aminotransferase 32 IU/L (14-36); BUN Creatinine Ratio 26.9 (6-22); Bilirubin Total 0.7 mg/dL (0.2-1.3); Blood Urea Nitrogen 18 mg/dL (7-17); Calcium 9.8 mg/dL (8.4-10.2); Carbon Dioxide 27 mmol/L (22-32); Chloride 101 mmol/L (98-107); Creatine Kinase 60 U/L (30-135); Estimated Glomerular Filt Rate > 60.0 mL/min (>60); Globulin 3.2 g/dL (1.7-4.1); Glucose 97 mg/dL (70-100); HEMOLYSIS 35 (0-50); Lipase 139 U/L (23-300); Potassium 3.8 mmol/L (3.4-5.1); Sodium 137 mmol/L (137-145); Total Protein 8.1 g/dL (6.3-8.2)
[2020-02-23 18:28] LABS: Troponin I < 0.012 ng/mL (0.01-0.034)
[2020-02-23 18:37] VITALS: BP 118/67; PULSE 82; RESP 18; O2SAT 100
== END 2020-02-23 18:43 | disposition home or self-care (01) ==
PROVIDERS: Emergency Medicine; Emergency Provider Emergency Medicine; Family Provider Family Medicine; PCP Family Medicine
DX: F41.9 Anxiety disorder, unspecified (principal); R07.9 Chest pain, unspecified
CPT/HCPCS: 36415; 71045; 80053; 82550; 83690; 84484; 85025; 85610; 85730; 93005; 93010; 99284

== ENCOUNTER 2020-04-24 09:30 | Outpatient (RCR) | payer OTHER, SELFPAY ==
--- NOTE | 2020-03-13 17:14 | ST.OPIE ---
Visit Care Team Role Provider Type Dahiana Bradley DO Primary Care Provider Non-Staff Specialty: Family Practice Address: [address] [place] [address] [address], [place], [address] Email: William Prieto MD Family Provider Non-Staff Specialty: Medical Address: [address] [place] [address] [address] Pena, [place], [address] Email: Keiko Dent DO Attending Provider Physician Referring Provider Specialty: Internal Medicine Address: [address] [place] [address], [address] Email: Speech-Language Pathology Initial Evaluation INSURANCE EXAMINER Clinical Swallow Evaluation Start: 03/13/20 16:45 Freq: Status: Active Protocol: Document 03/13/20 16:46 OSVALDO (Rec: 03/13/20 17:11 [email or web address] [email or web address]) Clinical Swallow Evaluation Session Time Visit Start Time 15:30 Visit Stop Time 16:20 Total Visit Minutes 50 Visit Information Plan of Care Dates 03/13/20 - 06/13/20 Insurance Information [facility] Referral Referring Physician Dr. 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 Since then, she has felt that her tongue doesn't work right and experiences difficulty initiating swallow and frequently has sticking sensation, particularly with bulky or stringy foods such as meats, breads and celery. At time of MBS, she was consuming a full liquid diet for easy and out of fear of choking. Since then, she has resumed solid food consumption with exception of such foods. MBS revealed mild oral dysphagia secondary to reduced coordination with bolus formation and a/p propulsion. Pharyngeal swallow phase was WNL and no evidence of penetration or aspiration was observed. Mild delay of a 13mm barium tablet through the esophagus was observed, during which time the pt sensed the pill was stuck in the base of her throat, although her pharynx was clear. The tablet passed with subsequent swallow of water, as did the pt's sticking sensation. Suspect referred sensation of vagus nerve may contribute to pharyngeal sticking sensation. The pt has undergone esophageal endoscopy and manometry, both showing normal function. The pt has been seen via video conference by a neurologist. She states MS has been ruled out. Subjective Observations The pt arrived on time accompanied by her two young sons who were present throughout the evaluation. She provided updated case history and expressed ongoing concern of neurologic disorder, desiring a second opinion by a more local neurologist and plans to contact Dr. Eneida Baker. She also has expressed concern of oral cancer and requested referral to Dr. Harley, ENT, which will be made. Findings Dysphagia Type Mild Oral Dysphagia Rehabilitation Potential Excellent Impressions MBSS serves as initial swallow evaluation. Findings were shared with the pt with detailed video review and education. The pt was educated on safe swallow strategies including consuming small bites chewed very well and followed by liquids to aid swallow trigger and minimize sticking sensation and anxiety d/t increased bolus bulk. Trained pt in exercises to increase lingual strength and coordination, as well as exercises targeting pharyngeal stripping wave and airway protection. The pt returned demonstration of exercises and verbalized understanding. Instructions were provided orally and in writing for home practice. Diet Recommendations Liquids Order Thin Diet Order Regular Medication Recommendations As Tolerated Aspiration Precautions Recommended Precautions Upright at 90 Degrees,Small Bites/Sips,Effortful Swallow Treatment Plan Placement Recommendations after Home Discharge Appropriate for Therapy Yes: Anticipate 3-5 sessions over 8 wks Therapy Recommendations 1. The pt will perform exercises independently to increase strength and coordination of oral and pharyngeal swallow muscles to improve efficiency of swallow and increase safety and comfort with oral intake. Dysphagia Goals 1. The pt will demonstrate swallow function WNL, tolerating regular textures and thin liquids without s/sx of aspiration. 2. The pt will express comfort and confidence with oral intake WNL as per PLOF. Referrals/Other Recommended Referrals Neurology,ENT Consult
--- NOTE | 2020-03-27 17:23 | ST.IPDYTX ---
Visit Care Team Role Provider Type Dahiana Bradley DO Primary Care Provider Non-Staff Specialty: Family Practice [address], [place], [address] Email: William Prieto MD Family Provider Non-Staff Specialty: Medical Address: [address] [place] [address] [address], [place], [address] Email: Keiko Dent DO Attending Provider Physician Referring Provider Specialty: Internal Medicine Address: [address] [place] [address] [place], [address] Email: RN LACTATION Dysphagia Treatment RN LACTATION Dysphagia Treatment Start: 03/13/20 16:45 Freq: Status: Active Protocol: Document 03/27/20 17:00 OSVALDO (Rec: 03/27/20 17:01 [email or web address] [email or web address]) Dysphagia Treatment Session Time Visit Start Time 13:43 Visit Stop Time 14:23 Total Visit Minutes 45 Visit Information Visit Number 1 Plan of Care Dates 03/13/20 - 06/13/20 Insurance Information [place] Setting Assessment Location Outpatient Care Visit Type Note Type Treatment Note Next Note Type Next Note Type Treatment Note Patient Information Subjective Observations The pt arrived 13 minutes late accompanied by her two young sons (Saud and Maxi) who were present throughout the session.She reported difficulty performing lingual protrusion and retraction, often with some pain associated. She also reported that she frequently clenches her teeth, which was observed by her dentist. The pt is in process of getting a mouth guard for this, but she stated that she clenches her teeth while driving, as well. She informed that she does have significant anxiety and has an appt with a psychiatrist scheduled within the next two weeks. The pt denied muscular weakness or reduced coordination in any other body parts. She has resumed running without problem. She did report tingling in her fingers/hands, bilaterally. 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 Treatment Liquids Trialed Thin Treatment Activities Further assessed pt's oral motor/lingual control. Pt had difficulty volitionally retracting tongue, elevating back of tongue in structured tasks, and relaxing tongue tip to floor of mouth at rest. Attempts at gargling water resulted in immediate cough and aspiration. Pt was able to swish water in mouth with head in neutral position but mild elevation of chin resulted in coughing and aspiration, indicating reduced control of back of tongue. The pt's speech remained without distortion, including phonemes /g/ and /k/. She was able to produce these phonemes in isolation appropriately via visual observation, although she expressed reduced sensation of back of tongue contact with soft palate. Instead she reported feeling middle of tongue blade contacting hard palate. The pt was able to chew gum without pain or discomfort. Trained pt in jaw and lingual relaxation techniques to reduce tension at tongue tip. Skilled feedback was provided, as well as recommendation to discuss swallow challenges with psychiatrist. Discussed possibility of emotional fear associated with first experiences with choking on saliva. The pt was in agreement. Assessment Patient Response to Treatment Fair Rehab Potential Good Assessment of Improvement The pt appears to have normal spontaneous lingual control, as evidenced by clear speech articulation. However, volitional control of back of tongue as well as tongue blade is reduced, resulting in escape of liquid during bolus hold with head elevated at all beyond neutral position, preventing the pt from performing gargle or swishing liquid unless in neutral position. Additionally, she is able to perform tongue retraction only occasionally and with great effort. Additionally, the pt is unable to relax the tongue tip behind lower front teeth, indicating possible hypertonic muscular state possibly from habitual jaw and lingual tension, which may impact back of tongue function. Psychological anxiety may contribute to symptoms but does not appear to account for all symptoms. Diet Recommendations Recommendations Continue Current Diet Liquids Order Thin Diet Order Regular Medication Recommendations As Tolerated Treatment Plan Placement Recommendation after Discharge Home,Outpatient Therapy Appropriate for Continued Therapy Yes Therapy Recommendations 1. The pt will perform exercises independently to increase strength and coordination of oral and pharyngeal swallow muscles to improve efficiency of swallow and increase safety and comfort with oral intake. 2. The pt will perform lingual relaxation techniques to resume normal posture of tongue at rest and reduce possible hypertonicity. Dysphagia Goals 1. The pt will demonstrate swallow function WNL, tolerating regular textures and thin liquids without s/sx of aspiration. 2. The pt will demonstrate volitional lingual control WFL to improve oral prep and swallow phases and reduce risk of aspiration. 2. The pt will express comfort and confidence with oral intake WNL as per PLOF. Follow Up Plan Consult with other fisher eel and/or Neurologist
--- NOTE | 2020-04-24 14:32 | ST.IPDYTX ---
Visit Care Team Role Provider Type Dahiana Bradley DO Primary Care Provider Non-Staff Specialty: Family Practice Address: [address] [facility] [address], [place], [address] Email: William Prieto MD Family Provider Non-Staff Specialty: Medical Address: [address] [place] [address] [address], [place], [address] Email: Keiko Dent DO Attending Provider Physician Referring Provider Specialty: Internal Medicine Address: [address] [place] [address] [place], [address] Email: REELER OPERATOR Dysphagia Treatment REELER OPERATOR Dysphagia Treatment Start: 03/13/20 16:45 Freq: Status: Active Protocol: Document 04/24/20 11:32 OSVALDO (Rec: 04/24/20 11:38 [email or web address]) Dysphagia Treatment Session Time Visit Start Time 09:40 Visit Stop Time 10:20 Total Visit Minutes 40 Visit Information Visit Number 2 Plan of Care Dates 03/13/20 - 06/13/20 Insurance Information [facility] Setting Assessment Location Outpatient Care Visit Type Note Type Treatment Note Next Note Type Next Note Type Treatment Note Patient Information Identification Type Name,ID Card Subjective Observations The pt arrived 10 minutes late d/t arrangements with child day care provider. 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 PCP is referring pt to Rhumatology for further evaluation. The pt also c/o constant pain and pressure at base of rib cage which she has experienced for the last several months but which has worsened over time. She is concerned of possible hiatal hernia, which, if present, may contribute to swallow challenges. She stated that she feels very full quickly even though she is eating minimal amounts of food . She did undergo endoscopy at [facility] in October, without indication of hiatal hernia. Will request medical records. Pt questioned if further esophageal assessment may be warranted. Treatment Treatment Activities Discussed pt's concerns about hiatal hernia, educated pt and made recommendation for updated endoscopy/barium swallow study for esophageal evaluation. Pt was in agreement. Trained pt in lingual exercises against resistance to increase posterior and lateral lingual strength and coordination. Pt performed lingual extension and elevation against a tongue depressor and expressed significant sensory impact on musculature. Following lingual extension with resistance, the pt was better able to retract her tongue to the back of the mouth than without resistance. Given a lemon swab placed at center of lingual blade, the pt propelled the swab anteriorly and posteriorly using tongue only with much increased coordination and ROM as compared to performance without swab. The pt expressed feeling much encouraged. Skilled feedback was provided including instructions on saliva management during these tasks, especially when performing with lemon swab or flavored tongue depressor, which may increase saliva production. Pt verbalized understanding and managed saliva without difficulty during today's exercises. Assessment Patient Response to Treatment Good Rehab Potential Good Assessment of Improvement The pt exhibited much improved progress toward goals and improved lingual control and coordination using resistance and oral manipulables. She reported increased confidence with oral intake and is trying a greater variety of foods to swallow, exhibiting good awareness of both strengths and areas of deficit. Given the pt's complaints of discomfort around diaphragm area in conjunction with dysphagia symptoms, including sensation of being very full after minimal intake, referral to GI for esophageal evaluation is recommended. Pt is in agreement and asked that request for referral be made to both Dr. Dent and the pt's PCP, Dr. Bradley at [facility], which will be done. Diet Recommendations Recommendations Continue Current Diet Liquids Order Thin Diet Order Regular Medication Recommendations As Tolerated Comments Gradually increase diet from soft/moist to regular as comfortable Aspiration Precautions Recommended Precautions Upright at 90 Degrees,Small Bites/Sips,Effortful Swallow Treatment Plan Placement Recommendation after Discharge Home,Outpatient Therapy Appropriate for Continued Therapy Yes Therapy Recommendations 1. The pt will perform exercises independently to increase strength and coordination of oral and pharyngeal swallow muscles to improve efficiency of swallow and increase safety and comfort with oral intake. 2. The pt will perform lingual relaxation techniques to resume normal posture of tongue at rest and reduce possible hypertonicity. Dysphagia Goals 1. The pt will demonstrate swallow function WNL, tolerating regular textures and thin liquids without s/sx of aspiration. 2. The pt will demonstrate volitional lingual control WFL to improve oral prep and swallow phases and reduce risk of aspiration. 2. The pt will express comfort and confidence with oral intake WNL as per PLOF. Referrals/Other Recommended Referrals GI Consult
--- NOTE | 2020-07-02 15:28 | ST.IPDYTX ---
Visit Care Team Role Provider Type Dahiana Bradley DO Primary Care Provider Non-Staff Specialty: Family Practice Address: [address] [facility] [address], [place], [address] Email: William Prieto MD Family Provider Non-Staff Specialty: Medical Address: [address] [place] [address] [address], [place], [address] Email: Keiko Dent DO Attending Provider Physician Referring Provider Specialty: Internal Medicine Address: [address] [place] [address], [id number] Email: LEGAL DOCUMENT SPECIALIST Dysphagia Treatment LEGAL DOCUMENT SPECIALIST Dysphagia Treatment Start: 03/13/20 16:45 Freq: Status: Active Protocol: Document 07/02/20 15:24 OSVALDO (Rec: 07/02/20 15:27 [email or web address] [email or web address]) Dysphagia Treatment Visit Information Plan of Care Dates 03/13/20 - 06/13/20 Insurance Information [facility] Assessment Location Outpatient Care Visit Type Note Type Discharge Summary Patient Information Subjective Observations Spoke with pt by phone. She reported diagnosis of hiatal hernia with subsequent tx via stomach acid reducers from which she has experienced significant relief and is back to eating most desired foods. She expressed gratitude for services and will be discharged from skilled intervention at this time. Treatment Plan Therapy Recommendations 1. The pt will perform exercises independently to increase strength and coordination of oral and pharyngeal swallow muscles to improve efficiency of swallow and increase safety and comfort with oral intake. GOAL MET 2. The pt will perform lingual relaxation techniques to resume normal posture of tongue at rest and reduce possible hypertonicity. GOAL MET Dysphagia Goals 1. The pt will demonstrate swallow function WNL, tolerating regular textures and thin liquids without s/sx of aspiration. GOAL MET PER PT REPORT 2. The pt will demonstrate volitional lingual control WFL to improve oral prep and swallow phases and reduce risk of aspiration. GOAL MET PER PT REPORT 2. The pt will express comfort and confidence with oral intake WNL as per PLOF. GOAL MET PER PT REPORT Follow Up Plan Discharge from Speech Therapy
== END 2020-07-15 12:35 ==
LOC: SP 09:30
PROVIDERS: Family Provider Family Medicine; PCP Family Medicine; Referring Provider Student in an Organized Health Care Education/Training Program; Visit Provider Student in an Organized Health Care Education/Training Program
DX: R13.11 Dysphagia, oral phase (principal)
CPT/HCPCS: 92526; 92610

== ENCOUNTER → 2020-10-24 10:35 | Outpatient (CLI) | payer OTHER, SELFPAY ==
[2020-10-24 10:46] LABS: Add Manual Diff / Slide Review NO; Basophils Absolute Auto 100 /uL (0-100); Eosinophils Absolute Auto 200 /uL (0-450); Eosinophils Percent Auto 2.7 % (2-4); Hematocrit 40.4 % (36-46); Hemoglobin 13.4 g/dL (12.0-16.0); Lymphocytes Absolute Auto 1600 /uL (1100-4500); Lymphocytes Percent Auto 27.8 % (25-40); Mean Corpuscular HGB Conc 33.2 % (30-36); Mean Corpuscular Hemoglobin 28.7 PG (26-34); Mean Corpuscular Volume 86.6 fL (80-100); Monocytes Absolute Auto 500 /uL (0-900); Neutrophils Absolute Auto 3500 /uL (1500-7000); Neutrophils Percent Auto 59.5 % (50-75); Platelet Count 254 X10^3/uL (150-400); Red Blood Cell Count 4.66 X10^6/uL (4.0-5.2); White Blood Cell Count 5.9 X10^3/uL (4.5-11.0)
[2020-10-24 11:00] LABS: Alanine Aminotransferase 19 IU/L (<35); Albumin 4.6 g/dL (3.5-5.0); Albumin Globulin Ratio 1.4 (1.0-2.8); Alkaline Phosphatase 41 U/L (38-126); Aspartate Aminotransferase 26 IU/L (14-36); BUN Creatinine Ratio 19.7 (6-22); Bilirubin Total 1.6 mg/dL (0.2-1.3); Blood Urea Nitrogen 14 mg/dL (7-17); Calcium 9.3 mg/dL (8.4-10.2); Carbon Dioxide 26 mmol/L (22-32); Chloride 103 mmol/L (98-107); Estimated Glomerular Filt Rate > 60.0 mL/min (>60); Globulin 3.3 g/dL (1.7-4.1); Glucose 94 mg/dL (70-100); HEMOLYSIS < 15 (0-50); Lipase 82 U/L (23-300); Potassium 3.9 mmol/L (3.4-5.1); Sodium 135 mmol/L (137-145); Total Protein 7.9 g/dL (6.3-8.2)
== END ==
PROVIDERS: Nurse Practitioner; Family Provider Family Medicine; PCP Family Medicine; Referring Provider Physician Assistant; Visit Provider Physician Assistant
DX: R10.9 Unspecified abdominal pain (principal)
CPT/HCPCS: 36415; 80053; 83690; 85025

== ENCOUNTER → 2020-10-25 09:32 | Outpatient (CLI) | payer OTHER, SELFPAY ==
--- NOTE | 2020-10-25 09:33 | DI.US.S_ITS ---
PROCEDURE: US ABDOMEN COMPLETE INDICATIONS: r/o umbilical hernia, visualized liver and appendix of poss TECHNIQUE: Real-time scanning was performed of the abdominal and retroperitoneal organs, with image documentation. COMPARISON: None. FINDINGS: Liver: Liver is normal in size and homogeneous in echotexture. Gallbladder: No gallstones. No gallbladder wall thickening, pericholecystic fluid or sonographic Mix's sign. Biliary ducts: Intrahepatic bile ducts are non-dilated. Extrahepatic bile duct caliber measures 2.3 mm. Normal is 6-7 mm or less in diameter, or 10 mm or less post-cholecystectomy. Pancreas: Visualized portions of the pancreas are sonographically normal. Spleen: Spleen is normal in size and homogeneous in echotexture. Kidneys: Kidneys are normal in size and echotexture. Right kidney measures 11.0 cm long; left kidney measures 12.0 cm long. No hydronephrosis or nephrolithiasis. No solid masses. Aorta: Visualized aorta is normal in caliber at less than 3 cm. Iliacs: Proximal common iliac arteries are normal in caliber at less than 2.5 cm. IVC: Intrahepatic inferior vena cava is patent. Miscellaneous: No free abdominal fluid. No ventral hernia is seen around the umbilicus. Appendix is not identified. No secondary signs for acute appendicitis. IMPRESSION: 1. Normal abdominal ultrasound exam. 2. No periumbilical hernia. 3. Appendix is not identified. No secondary signs for acute appendicitis. Dictated by: Nickolas Mclean M.D. on 10/25/2020 at 11:29 Approved by: Nickolas Mclean M.D. on 10/25/2020 at 11:37
== END ==
PROVIDERS: Family Provider Family Medicine; PCP Family Medicine; Referring Provider Family Medicine; Visit Provider Nurse Practitioner
DX: R10.9 Unspecified abdominal pain (principal)
CPT/HCPCS: 76700

== ENCOUNTER → 2021-07-17 08:58 | Outpatient (CLI) | payer OTHER, SELFPAY ==
--- NOTE | 2021-07-17 09:00 | DI.RAD.S_ITS ---
PROCEDURE: XR CHEST 2V INDICATIONS: chest pain TECHNIQUE: 2 views of the chest were acquired. COMPARISON: [facility], CR, XR CHEST 1V, 02/23/2020, 18:06. FINDINGS: Surgical changes and devices: None. Lungs and pleura: Lungs are clear. No pleural effusions or pneumothorax. Mediastinum: Mediastinal contours are normal. Heart size is normal. Bones and chest wall: No suspicious bony abnormalities. Soft tissues appear unremarkable. IMPRESSION: No acute cardiopulmonary disease. Dictated by: Nickolas Mclean M.D. on 07/17/2021 at 9:23 Approved by: Nickolas Mclean M.D. on 07/17/2021 at 9:24
[2021-07-17 10:17] LABS: Add Manual Diff / Slide Review NO; Basophils Absolute Auto 0 /uL (0-100); Basophils Percent Auto 0.9 % (0-2); Eosinophils Absolute Auto 100 /uL (0-450); Eosinophils Percent Auto 2.5 % (2-4); Hematocrit 40.8 % (36-46); Hemoglobin 13.7 g/dL (12.0-16.0); Lymphocytes Absolute Auto 1300 /uL (1100-4500); Mean Corpuscular HGB Conc 33.6 % (30-36); Mean Corpuscular Hemoglobin 28.5 PG (26-34); Mean Corpuscular Volume 84.9 fL (80-100); Monocytes Absolute Auto 500 /uL (0-900); Monocytes Percent Auto 8.8 % (3-14); Neutrophils Absolute Auto 3400 /uL (1500-7000); Neutrophils Percent Auto 63.8 % (50-75); Platelet Count 253 X10^3/uL (150-400); Red Cell Distribution Width 13.3 % (11.6-14.8); White Blood Cell Count 5.3 X10^3/uL (4.5-11.0)
[2021-07-17 10:28] LABS: Alanine Aminotransferase 15 IU/L (<35); Albumin 4.7 g/dL (3.5-5.0); Albumin Globulin Ratio 1.6 (1.0-2.8); Alkaline Phosphatase 45 U/L (38-126); Aspartate Aminotransferase 23 IU/L (14-36); BUN Creatinine Ratio 17.6 (6-22); Bilirubin Total 1.6 mg/dL (0.2-1.3); Blood Urea Nitrogen 13 mg/dL (7-17); Calcium 9.4 mg/dL (8.4-10.2); Carbon Dioxide 27 mmol/L (22-32); Chloride 103 mmol/L (98-107); Creatine Kinase 55 U/L (30-135); Estimated Glomerular Filt Rate > 60.0 mL/min (>60); Glucose 94 mg/dL (70-100); HEMOLYSIS < 15 (0-50); Lipase 74 U/L (23-300); Potassium 4.1 mmol/L (3.4-5.1); Sodium 137 mmol/L (137-145); Total Protein 7.7 g/dL (6.3-8.2)
[2021-07-17 10:36] LABS: Troponin I < 0.012 ng/mL (0.01-0.034)
[2021-07-17 11:28] LABS: Thyroid Stimulating Hormone 0.709 uIU/mL (0.47-4.68)
== END ==
PROVIDERS: Family Provider Family Medicine; PCP Family Medicine; Referring Provider Nurse Practitioner; Visit Provider Nurse Practitioner
DX: R07.9 Chest pain, unspecified (principal)
CPT/HCPCS: 36415; 71046; 80053; 82550; 83690; 84443; 84484; 85025

== ENCOUNTER → 2021-07-18 07:45 | Outpatient (CLI) | payer OTHER, SELFPAY ==
--- NOTE | 2021-07-18 07:46 | DI.US.S_ITS ---
PROCEDURE: US ABDOMEN LIMITED INDICATIONS: EPIGASTRIC PAIN. ELEVATED BILIRUBIN. TECHNIQUE: Real-time focused scanning was performed of the abdomen, with image documentation. COMPARISON: [facility], RF, FL BARIUM SWALLOW W SPEECH, 12/11/2019, 9:30. [facility], CR, XR CHEST 2V, 07/17/2021, 8:59. [facility], US, US ABDOMEN COMPLETE, 10/25/2020, 10:00. FINDINGS: The liver is normal in size and demonstrates no focal lesions. No findings of gallstones or sludge are seen. The gallbladder wall is not thickened, measuring 3 mm or less. No specific pericholecystic fluid is seen. The sonographic Mix sign is negative. There is no biliary dilatation, the common bile duct measures 5 mm. No significant pancreatic abnormality is seen on these images. Note is made of prominent bowel adjacent to the pancreatic head and gallbladder neck. IMPRESSION: The gallbladder demonstrates a normal sonographic appearance. No biliary dilatation is seen. Prominent duodenum incidentally noted. Dictated by: Jacky Arriaga M.D. on 07/18/2021 at 8:55 Approved by: Jacky Arriaga M.D. on 07/18/2021 at 8:56
== END ==
PROVIDERS: Family Provider Family Medicine; PCP Family Medicine; Referring Provider Nurse Practitioner; Visit Provider Nurse Practitioner
DX: R10.13 Epigastric pain (principal); R17 Unspecified jaundice
CPT/HCPCS: 76705

== ENCOUNTER → 2023-01-28 10:55 | Outpatient (CLI) | payer OTHER, SELFPAY | PROVIDERS: Family Provider Family Medicine; PCP Nurse Practitioner Family; Visit Provider Nurse Practitioner Family | DX: R30.0 Dysuria (principal) | CPT/HCPCS: 87086 ==

== ENCOUNTER 2023-04-11 15:22 | Emergency (ER) | payer OTHER, SELFPAY ==
[2023-04-11] VITALS (23 sets, daily range): BP systolic 116–145; BP diastolic 61–86; PULSE 66–105; RESP 14–27; TEMP 36.6; O2SAT 96–100; BMI 35.7
--- NOTE | 2023-04-11 15:34 | DI.RAD.S_ITS ---
PROCEDURE: XR CHEST 1V INDICATIONS: chest pain TECHNIQUE: One view of the chest was acquired. COMPARISON: [facility], CR, XR CHEST 2V, 07/17/2021, 8:59. FINDINGS: Surgical changes and devices: None. Lungs and pleura: Lungs are clear. No pleural effusions or pneumothorax. Mediastinum: Mediastinal contours appear normal. Heart size is normal. Bones and chest wall: No suspicious bony lesions. Overlying soft tissues appear unremarkable. IMPRESSION: No acute cardiopulmonary abnormalities or focal airspace disease. Dictated by: Wil Dawson M.D. on 04/11/2023 at 15:13 Approved by: Wil Dawson M.D. on 04/11/2023 at 15:13
[2023-04-11 15:58] LABS: Add Manual Diff / Slide Review NO; Basophils Absolute Auto 100 /uL (0-100); Basophils Percent Auto 0.6 % (0-2); Eosinophils Absolute Auto 100 /uL (0-450); Eosinophils Percent Auto 1.4 % (2-4); Hematocrit 39.4 % (36-46); Hemoglobin 13.5 g/dL (12.0-16.0); Lymphocytes Absolute Auto 1900 /uL (1100-4500); Lymphocytes Percent Auto 18.1 % (25-40); Mean Corpuscular HGB Conc 34.2 % (30-36); Mean Corpuscular Hemoglobin 28.8 PG (26-34); Mean Corpuscular Volume 84.3 fL (80-100); Monocytes Absolute Auto 600 /uL (0-900); Monocytes Percent Auto 6.1 % (3-14); Neutrophils Absolute Auto 7600 /uL (1500-7000); Neutrophils Percent Auto 73.8 % (50-75); Platelet Count 315 X10^3/uL (150-400); Red Blood Cell Count 4.67 X10^6/uL (4.0-5.2); Red Cell Distribution Width 13.4 % (11.6-14.8); White Blood Cell Count 10.3 X10^3/uL (4.5-11.0)
[2023-04-11 16:05] LABS: Prothrombin Time 10.9 SECONDS (10.1-12.7)
[2023-04-11 16:08] LABS: PTT Partial Thromboplastin Tim 31 SECONDS (26-36)
[2023-04-11 16:11] LABS: Alanine Aminotransferase 23 IU/L (<35); Albumin 4.5 g/dL (3.5-5.0); Albumin Globulin Ratio 1.4 (1.0-2.8); Alkaline Phosphatase 70 U/L (38-126); Aspartate Aminotransferase 25 IU/L (14-36); BUN Creatinine Ratio 18.8 (6-22); Bilirubin Total 0.7 mg/dL (0.2-1.3); Blood Urea Nitrogen 12 mg/dL (7-17); Calcium 9.1 mg/dL (8.4-10.2); Carbon Dioxide 29 mmol/L (22-32); Chloride 103 mmol/L (98-107); Creatine Kinase 88 U/L (30-135); Estimated Glomerular Filt Rate > 60 mL/min (>60); Globulin 3.3 g/dL (1.7-4.1); Glucose 97 mg/dL (70-100); HEMOLYSIS < 15 (0-50); Lipase 99 U/L (23-300); Magnesium 2.2 mg/dL (1.6-2.3); Potassium 3.8 mmol/L (3.4-5.1); Sodium 139 mmol/L (137-145); Total Protein 7.8 g/dL (6.3-8.2)
[2023-04-11 16:23] LABS: Troponin I < 0.012 ng/mL (0.01-0.034)
--- NOTE | 2023-04-11 18:25 | ED_ITS ---
HPI - Arrhythmia/Palpitations General Chief Complaint: Arrhythmia/Palpitations Stated Complaint: High HR, Chest pressure, Extremity weakness Time Seen by Provider: 04/11/23 16:04 History of Present Illness HPI narrative: 37-year-old woman with anxiety, asthma over the past has noted occasional irregular heartbeats that felt odd but did not cause pain. Over the last 3 days this has escalated. She does not have any explanation for the escalation in symptoms which is causing her increased anxiety. There has been no recent upper respiratory infection, no nausea vomiting or diarrhea. She describes the episodes of palpitations as acute onset at random times sometimes after exercise sometimes standing sometimes lying sometimes just as she is awakening from sleep. She has not found anything that specifically provokes them. When she gets them she will become anxious does not like the feeling of fluttering in her throat but no actual pain, dyspnea or diaphoresis. The longest episode has been 30 minutes. He comes in today for further evaluation Related Data Home Medications Medication Instructions Recorded Confirmed clonazepam 0.5 mg tablet 0.5 mg PO BID PRN Anxiety 03/22/18 01/28/23 albuterol sulfate 90 mcg/actuation 2 puff inhalation Q6H PRN 09/16/18 01/28/23 aerosol inhaler (Ventolin HFA) Shortness Of Breath Previous Rx's Medication Instructions Recorded cyclobenzaprine 5 mg tablet 5 mg PO TID PRN muscle spasm #20 10/24/21 tabs phenazopyridine 200 mg tablet 200 mg PO TID 6 doses #6 tabs 01/28/23 (Pyridium) Allergies Allergy/AdvReac Type Severity Reaction Status Date / Time ibuprofen [IBUPROFEN] AdvReac Intermediate SWELLING Verified 01/28/23 11:02 WITH HIGH DOSES Review of Systems Review of Systems Narrative: Pertinent positive and negative findings as per HPI Patient History Medical History (Updated 04/11/23 @ 19:40 by Geraldine Vincent MD) Anxiety Palpitations Surgical History History of bilateral tubal ligation Social History Smoking Status: Never smoker Smoking Status: Never smoker alcohol intake frequency: holidays/special occasions only Substance Use Type: does not use Exam Initial Vital Signs Initial Vital Signs: Vital Signs Pulse Rate 89 04/11/23 15:30 Respiratory Rate 21 04/11/23 15:30 General: Healthy appearing, in no acute distress. Able to give a complete and coherent history. Well-nourished well-developed HEENT: Moist mucous membranes, normal sclera with reactive pupils, Neck: No JVD, supple Respiratory: Lungs are clear to auscultation, no wheezing no rales no rhonchi. Full and symmetrical air movement Cardiac: Regular rate and rhythm no murmurs no bruits Abdomen: Soft, nontender, good bowel tones, no flank pain Skin: Warm and dry, no rashes Neurologic: Grossly neurologically intact with no obvious asymmetries or abnormalities Extremities: No trauma, well perfused Psych: Cooperative, appropriate insight and affect Course Orders Ordered: ED Orders 04/11/23 15:34 XR chest 1V Stat Complete Blood Count AUTO DIFF Stat Comprehensive Metabolic Panel Stat Lipase Stat Magnesium Stat PTT Partial Thromboplastin Francisco Stat Prothrombin Time INR Stat Troponin & CK Cardiac Panel Stat 04/11/23 15:37 TSH [Thyroid Stimulating Hormone] Stat Vital Signs Vital signs: Vital Signs - 8 hr 04/11/23 15:32 04/11/23 15:30 04/11/23 15:31 Temperature 97.8 F Pulse Rate 93 H 89 105 H Respiratory Rate 16 21 19 Blood Pressure 145/86 H Pulse Oximetry 100 100 Oxygen Delivery Method Room Air 04/11/23 15:31 04/11/23 15:45 04/11/23 15:45 Temperature Pulse Rate 73 Respiratory Rate 27 H Blood Pressure 145/86 H 130/70 Pulse Oximetry 99 Oxygen Delivery Method 04/11/23 16:00 04/11/23 16:00 04/11/23 16:15 Temperature Pulse Rate 71 Respiratory Rate 16 Blood Pressure 124/62 120/63 Pulse Oximetry 97 Oxygen Delivery Method 04/11/23 16:15 04/11/23 16:30 04/11/23 16:30 Temperature Pulse Rate 80 74 Respiratory Rate 22 Blood Pressure 123/64 Pulse Oximetry 97 98 Oxygen Delivery Method Room Air 04/11/23 16:45 04/11/23 16:45 04/11/23 17:00 Temperature Pulse Rate 70 Respiratory Rate 15 Blood Pressure 120/61 121/70 Pulse Oximetry 97 Oxygen Delivery Method Room Air 04/11/23 17:00 04/11/23 17:15 04/11/23 17:15 Temperature Pulse Rate 73 73 Respiratory Rate 25 H 14 Blood Pressure 118/69 Pulse Oximetry 96 98 Oxygen Delivery Method 04/11/23 17:30 04/11/23 17:30 04/11/23 17:45 Temperature Pulse Rate 73 Respiratory Rate 23 Blood Pressure 123/70 123/68 Pulse Oximetry 97 Oxygen Delivery Method 04/11/23 17:45 04/11/23 18:00 04/11/23 18:00 Temperature Pulse Rate 73 77 Respiratory Rate 23 23 Blood Pressure 123/68 Pulse Oximetry 97 96 Oxygen Delivery Method 04/11/23 18:15 04/11/23 18:15 Temperature Pulse Rate 75 Respiratory Rate Blood Pressure 117/67 Pulse Oximetry 96 Oxygen Delivery Method MDM - Arrhythmia/Palpitations Lab Data 04/11/23 15:34 04/11/23 15:34 Labs: Lab Results 04/11/23 04/11/23 04/11/23 Range/Units 15:34 15:34 15:34 WBC 10.3 (4.5-11.0) X10^3/uL RBC 4.67 (4.0-5.2) X10^6/uL Hgb 13.5 (12.0-16.0) g/dL Hct 39.4 (36-46) % MCV 84.3 (80-100) fL MCH 28.8 (26-34) PG MCHC 34.2 (30-36) % RDW 13.4 (11.6-14.8) % Plt Count 315 (150-400) X10^3/uL Neut % (Auto) 73.8 (50-75) % Lymph % (Auto) 18.1 L (25-40) % [place] % (Auto) 6.1 (3-14) % Eos % (Auto) 1.4 L (2-4) % Baso % (Auto) 0.6 (0-2) % Neut # (Auto) 7600 H (2545-9039) /uL Lymph # (Auto) 1900 (1955-8589) /uL [place] # (Auto) 600 (0-900) /uL Eos # (Auto) 100 (0-450) /uL Baso # (Auto) 100 (0-100) /uL PT 10.9 (10.1-12.7) SECONDS INR 1.0 (0.9-1.3) APTT 31 (26-36) SECONDS Sodium 139 (137-145) mmol/L Potassium 3.8 (3.4-5.1) mmol/L Chloride 103 (98-107) mmol/L Carbon Dioxide 29 (22-32) mmol/L BUN 12 (7-17) mg/dL Creatinine 0.64 (0.52-1.04) mg/dL Estimated GFR > 60 (>60) mL/min BUN/Creatinine Ratio 18.8 (6-22) Glucose 97 (70-100) mg/dL Calcium 9.1 (8.4-10.2) mg/dL Magnesium 2.2 (1.6-2.3) mg/dL Total Bilirubin 0.7 (0.2-1.3) mg/dL AST 25 (14-36) IU/L ALT 23 (<35) IU/L Alkaline Phosphatase 70 (38-126) U/L Total Creatine Kinase 88 (30-135) U/L Troponin I < 0.012 (0.01-0.034) ng/mL Total Protein 7.8 (6.3-8.2) g/dL Albumin 4.5 (3.5-5.0) g/dL Globulin 3.3 (1.7-4.1) g/dL Albumin/Globulin Ratio 1.4 (1.0-2.8) Lipase 99 (23-300) U/L MDM Narrative Medical decision making narrative: CC: 37-year-old woman with a history of asthma, mild anxiety presenting with 3 days of increasing palpitations. This is an acute problem with exacerbation and uncertain prognosis Data collected from: patient, Social determinants of health that may influence the patients condition: Medical records reviewed: Prior primary care visits, urgent care visits and ER visits over the last 3 years reviewed Differential considered: SVT, PAC, PVC, AFib doubt ventricular arrhythmias Exam documented above, pertinent findings include: Entirely benign exam Lab Test results independently reviewed as above. Pertinent findings: CBC is unremarkable Chemistries are reassuring Troponin and CK are both unremarkable Troponin in June of 2021 was 0.709. Today is 0.425 and T4 is currently pending Independently reviewed EKG sinus rhythm at a rate of 93. Normal intervals normal axis no acute ischemic changes. Imaging studies independently reviewed: Chest x-ray has no significant abnormalities, no cardiomegaly Consultations: Phone consultation with Dr. Morris, cardiology Re-evaluations: Normal workup is reviewed with patient. Throughout her ER stay she is remained in a normal sinus rhythm. I asked her to go do few laps around the parking lot to try and induce this rhythm. She was able to get her heart rate up into a normal sinus tachycardia low 100s no abnormalities. Discussion: 37-year-old woman with 3 days of palpitation normal cardiac workup. At this time I am not seeing any life-threatening abnormalities. I believe further outpatient workup is going to be required and she may benefit from a Zio patch. Unfortunately, she is currently in between primary care providers. I have spoken with Dr. Morris to see if we can at least get her cardiology appointment scheduled for further evaluation. Patient is reassured at this time. I am not seeing evidence of acute cardiac pathology, cardiomyopathy, congestive heart failure, pneumothorax, ventricular arrhythmia, severe anemia, severe hyper or hypothyroidism or alternate explanations that would require inpatient stay or further imaging at this time. All findings reviewed with patient and her . Discharge Plan Departure Patient Disposition: Home Clinical Impression: Palpitations Instructions: DI for Arrhythmias Activity Restrictions/Additional Instructions: Thank you for coming in today Your workup was quite reassuring. We do need to see this abnormal rhythm that you are experiencing while you were hooked up to an laboratory monitor so we can make a definitive diagnosis and help you most effectively. I have contacted Dr. Morris, civil engineering professional with [facility] cardiology clinic. I have given you contact information to him and his office will see if we can get you scheduled for an appointment for cardiac consultation and possibility of a Zio patch to wear as an outpatient so we can try and make a final diagnosis for you If you find that you are getting worse or develop any new symptoms, please feel free to return to the emergency department for further evaluation. Prescriptions: No Action cyclobenzaprine 5 mg tablet 5 mg PO TID PRN (Reason: muscle spasm) Qty: 20 0RF albuterol sulfate [Ventolin HFA] 90 mcg/actuation HFA aerosol inhaler 2 puff INHALATION Q6H PRN (Reason: Shortness Of Breath) phenazopyridine [Pyridium] 200 mg tablet 200 mg PO TID 0 Days Qty: 6 0RF clonazepam 0.5 mg tablet 0.5 mg PO BID PRN (Reason: Anxiety) Referrals: Fozia Hawley ARNP [Primary Care Provider] - Stand Alone Forms: Patient Portal/API
[2023-04-11 19:30] LABS: Thyroid Stimulating Hormone 0.425 uIU/mL (0.47-4.68)
[2023-04-11 20:07] LABS: T4 Total Thyroxine 9.07 ug/dL (5.5-11.0)
== END 2023-04-11 19:56 | disposition home or self-care (01) ==
PROVIDERS: Emergency Medicine; Emergency Provider Emergency Medicine; Family Provider Family Medicine; PCP Nurse Practitioner Family
DX: R00.2 Palpitations (principal)
CPT/HCPCS: 36415; 71045; 80053; 82550; 83690; 83735; 84436; 84443; 84484; 85025; 85610; 85730; 93005; 99284